=== PATIENT | female | born 1960 | race Caucasian/White ===

== ENCOUNTER → 2016-10-16 | Outpatient (CLI) | payer OTHER ==
[2015-08-30 15:00] VITALS: BP 112/62
[~2016-10-16] MED LIST: ESTR0.3T PO; VITA1TAB19 PO
--- NOTE | 2016-10-16 15:00 | KCIC ---
PROCEDURE Two-view chest. HISTORY Cough, wheezing on auscultation. COMPARISON Two-view chest July 05, 2015. FINDINGS The cardiomediastinal silhouette is normal. There is a 12 millimeter nodular opacity in the left lung base on the frontal view without correlate on the lateral view. Lungs otherwise clear. No pleural effusion or pneumothorax. No acute bone abnormality. IMPRESSION Nodular opacity in the left lung base. Nodule could be infectious/inflammatory or neoplastic. Recommend further evaluation with CT chest versus short-term followup two-view chest. Electronically signed by: Jose Rafael Mary MD (Oct 16, 2016 14:59:09)
== END | disposition home or self-care (01) ==
LOC: KCIC 14:17
PROVIDERS: ATTEND Nurse Practitioner Family
DX: R05 Cough (principal); R06.2 Wheezing
CPT/HCPCS: 71020

== ENCOUNTER → 2017-08-30 | Outpatient (CLI) | payer OTHER | END | disposition home or self-care (01) | LOC: KCIC 13:46 | DX: M79.644 Pain in right finger(s) (principal); R91.8 Other nonspecific abnormal finding of lung field | CPT/HCPCS: 71046; 73120 ==

== ENCOUNTER → 2017-09-06 | Outpatient (CLI) | payer OTHER | END | disposition home or self-care (01) | LOC: KCIC CT 08:35 | DX: R91.8 Other nonspecific abnormal finding of lung field (principal) | CPT/HCPCS: 71250 ==

== ENCOUNTER 2019-05-29 08:16 | Outpatient (CLI) | payer OTHER ==
[2019-05-29] VITALS (9 sets, daily range): BP systolic 89–130; BP diastolic 59–85
[2019-05-29 09:09] LABS: BASO % 1 % (0-3); EOS % 1 % (0-3); HEMATOCRIT 32.2 % (36.0-47.0); LYMPH # 0.5 x10^3/uL (1.0-4.8); LYMPH % 38 % (24-48); MEAN CORPUSCULAR HEMOGLOBIN 32 pg (25-35); MEAN CORPUSCULAR HGB CONC 34 g/dL (31-37); MEAN CORPUSCULAR VOLUME 92 fL (79-100); MONO # 0.1 x10^3/uL (0.0-1.1); MONO % 9 % (0-9); NEUT # 0.7 x10^3/uL (1.8-7.7); NEUT % 51 % (31-73); RED BLOOD COUNT 3.48 x10^6/uL (3.50-5.40); RED CELL DISTRIBUTION WIDTH 16.8 % (11.5-14.5)
[2019-05-29] MEDS ORDERED: CALC600T4 PO (09:11)
[2019-05-29] MEDS ORDERED: FLAX1CAP PO (09:11)
[2019-05-29] MEDS ORDERED: ASPI325T11 PO (09:11)
[2019-05-29 09:12] LABS: WHITE BLOOD COUNT 1.4 x10^3/uL (4.0-11.0)
[2019-05-29 09:13] LABS: PLATELET COUNT 20 x10^3/uL (140-400)
[2019-05-29 09:15] LABS: PROTHROMBIN TIME PATIENT 13.6 SEC (11.7-14.0)
--- NOTE | 2019-05-29 09:19 | NUR ---
Dr. Gonzalez notified of critical wbc 1.4, and of critical plt count of 20; prior to bone marrow bx. No new orders received.
[2019-05-29] MEDS ORDERED: MIDAZOLAM HCL/PF 2 MG/2 ML VIAL. ONE (09:21)
[2019-05-29] MEDS ORDERED: fentaNYL PF VIAL 100 MCG/2 ML VIAL ONE (09:21)
[2019-05-29] MEDS ORDERED: LIDOCAINE WITH 8.4% SOD BICARB 3 ML DISP.SYRIN. ONE (09:25)
[2019-05-29] MEDS ORDERED: MIDAZOLAM HCL/PF 2 MG/2 ML VIAL. IV ONE (09:30)
[2019-05-29] MEDS ORDERED: fentaNYL PF VIAL 100 MCG/2 ML VIAL IV ONE (09:30)
[2019-05-29] MEDS ORDERED: LIDOCAINE WITH 8.4% SOD BICARB 3 ML DISP.SYRIN. IJ ONE (09:30)
[2019-05-29 11:09] LABS: % BANDS 5 % (0-9); % BASOS 1 % (0-3); % BLASTS 5 % (0-0); % EOS 2 % (0-5); % LYMPHS 29 % (24-48); % MONOS 4 % (0-10); % SEGS 54 % (35-66); PLT ESTIMATE DECREASED (ADEQUATE)
[2019-05-29 11:10] LABS: ANISOCYTOSIS PRESENT
--- NOTE | 2019-05-29 11:37 | NUR ---
Discharge Note: MARIZA HURLEY Discharge instructions and discharge home medications reviewed with Patient and a copy given. All questions have been answered and understanding verbalized. The following instructions and handouts were given: post moderate sedation, post bone marrow bx. Discontinued lines and drains: right FA IV dc'd, tip intact. Patient discharged to home with spouse via car.
--- NOTE | 2019-05-30 08:02 | RAD ---
CT-guided bone marrow biopsy. 05/30/2019 5:58 AM Indication: MDS Discussion: The risks and benefits of the procedure, including but not limited to, bleeding and infection were discussed patient. Informed consent was obtained. The patient was brought to the CT scanner and placed in the prone position. A timeout procedure was performed. Furnace Attendant CT imaging of the pelvis demonstrated left ilium amenable to bone marrow biopsy. The overlying soft tissues were prepped and draped using maximum sterile barrier technique. 1% lidocaine without epinephrine was administered for local anesthesia. Under intermittent CT guidance, an OncControl needle was advanced into the bone marrow of the left iliac crest. 2 Aspirates and 1 core biopsy samples were obtained. Samples were delivered to pathology was present at the time of procedure. The needle was removed and manual pressure held to achieve hemostasis. No immediate complications were identified. The procedure was performed under conscious sedation including continuous cardiopulmonary monitoring via dedicated sedation nurse. Sedation time: 15 minutes Impression: Successful CT-guided bone marrow biopsy of the left iliac crest . PQRS Compliance Statement: One or more of the following individualized dose reduction techniques were utilized for this examination: 1. Automated exposure control 2. Adjustment of the mA and/or kV according to patient size 3. Use of iterative reconstruction technique
--- NOTE | 2019-06-04 11:07 | PATHOLOGY ---
[facility] Accession Number: [id number] . 01 Material submitted: . PART A: bone - BONE MARROW BIOPSY PART B: bone - BONE MARROW ASPIRATE CLOT PART C: bone - BONE MARROW ASPIRATE SLIDE . 01 Clinical history: . MDS A 58-year-old woman with pancytopenia and previous diagnosis of myelodysplastic syndrome. . 02 Diagnosis: Bone marrow aspirate, biopsy, cell clot and peripheral blood: - Peripheral blood with pancytopenia including moderate to severe luekopenia, mild normocytic anemia and severe thrombocytopenia with circulating blasts. - HYPERCELLULAR BONE MARROW WITH TRILINEAGE HEMATOPOIESIS, TRILINEAGE DYSPOIESIS, INCREASED SMALL DYSPLASTIC MEGAKARYOCYTES AND INCREASED BLASTS CONSISTENT WITH THE PATIENT'S PREVIOUSLY DIAGNOSED MYELODYSPLASTIC SYNDROME. (14% MYELOBLASTS BY FLOW CYTOMETRY AND 13% BLASTS BY MORPHOLOGY). - See comment. . (CLW:elda; 06/03/2019) S 06/03/2019 1520 Local . 02 Comment: Overall the bone marrow is hypercellular for the patient's age with trilineage hematopoiesis, trilineage dyspoiesis, increased small dysplastic megakaryocytes and increased blasts. The findings are consistent with the patient's previously diagnosed myelodysplastic syndrome ([id number]). There are 14% myeloblasts by flow cytometry, 13% blasts by morphology and 10-20% blasts by immunohistochemistry. 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 When compared compared to the previous bone marrow biopsy, there is an increase in cellularity and increase in blasts. FISH analysis detected multiple abnormalities which likely indicate clonal evolution. Correlation with clinical history, additional laboratory data and cytogenetics / molecular studies is required. The case was discussed preliminarily with Dr. Steve Avalos on 05/30/2019 in the afternoon. The case was discussed with Dr. Dominguez on 06/04/2019 at 8:30 AM. . (CLW:elda; ) . 02 Electronically signed: . Aleida Parr MD, Pathologist NPI- [id number] . 01 Gross description: . A. Received in formalin labeled "Jessica Arora, BM BX," is a single needle core of ring bone measuring 1.5 cm in length and 0.2 cm in diameter. The specimen is submitted entirely in cassette A1, following decalcification. . B. Received in formalin labeled "Patt Arorara, BM Asp clot," is an aggregate of dark ring blood clot measuring 3.1 x 2.5 x 0.4 cm. The specimen is filtered and entirely submitted in cassette B1. (TSD; 05/29/2019) TOB/TOB 05/29/2019 1843 Local . 02 Microscopic: . CBC Data (05/29/2019): WBC 1,400 /uL, RBC 3.48, hemoglobin 11.0 g/dL, hematocrit 32.2%, MCV 92 fL, MCH 32 pg, MCHC 34 g/dL, RDW 16.8%, and platelet count 20,000 /uL. Manual white blood cell differential: segs 54%, bands 5%, lymphs 29%, monos 4%, eos 2%, basos 1%, and blasts 5%. . Peripheral Blood Smear: Cytomorphological examination of the Alvarado's stained peripheral blood smear confirms the provided data. Red blood cells show mild normocytic anemia with mild anisocytosis. No significant poikilocytosis is identified. White blood cells are decreased in number. They are predominantly segmented neutrophils with focal dysplastic changes of nuclear hypolobation. Occasional blasts without Alayna rods are noted on scanning. Lymphocytes are predominantly small, round, and mature appearing with condensed chromatin and scant cytoplasm with admixed large granular lymphocytes. Monocytes are mature. Platelets are markedly decreased in number and mainly normal in morphology with rare larger platelets noted. . Aspirate Smears: Cytomorphological examination of the Alvarado's stained aspirate smears shows disrupted hypocellular spicules present. The myeloid to erythroid ratio is 4:1. Myeloid maturation is abnormal and dyspoietic with abnormal nuclear lobation and increased blasts. No Alayna rods are seen. Erythroid maturation is mildly dyserythropoietic. In a 200 cell differential, there are 13% blasts (no Alayna rods are seen), 36% more differentiated myeloids, 13% erythroid precursors, and 38% lymphocytes. Megakaryocytes are inconspicuous. No lymphoid aggregated or markedly atypical lymphoid cells are seen. Iron stain of the aspirate smear shows 0 / 4+ iron positivity with hypocellular spicules present. No ringed sideroblasts are identified. . Core Biopsy and Cell Clot: The decalcified bone marrow core biopsy is adequate. Areas of aspiration artifact are noted. The bone marrow has patchy cellularity and is overall hypercellular with an overall cellularity of approximately 70%. The myeloid to erythroid ratio is increased. Myeloid and erythroid maturation are dyspoietic. Megakaryocytes are increased, small and dysplastic in appearance. No lymphoid aggregates or markedly atypical lymphoid cells are seen. Bony trabeculae and blood vessels are unremarkable. The cell clot is predominantly blood and peripheral blood elements with hypocellular spicules present. . Properly controlled special stains are performed. . Block A1 Iron: 1 / 4+ iron positivity; Reticulin: 2-3 / 4+ (moderate) reticulin fibrosis. . Block B1 Iron: 0 / 4+ iron positivity with only hypocellular spicules present. . Due to the hemodilute nature of the aspirate smears and to identify cells in a tissue architectural context, properly controlled immunohistochemical stains are performed. . Block A1 CD34: Mildly increased blasts (10-20%); CD117: Mildly increased staining; Myeloperoxidase: Confirms the ME ratio; Glycophorin A: Confirms the ME ratio; CD31: Increased, variably mature, megakaryocytes. . . Flow Cytometry: Flow cytometric immunophenotypic analysis was performed at [facility]. The diagnosis is "approximately 14% CD34 positive myeloblasts in a hemodilute marrow, suggestive of a high-grade myeloid neoplasm." There are 29.6% lymphocytes. Of the lymphocytes, there are 72% T-cells with a CD4/CD8 ratio of 3.3 and no aberrant T-cell antigen expression and 3% polyclonal B-cells (kappa lambda ratio of 1.8). There are 14% CD34 positive cells myeloblasts. The myeloblast immunophenotype shows expression of CD34, CD117, CD11b, CD13, CD33, HLA-DR, cytoMPO and is negative for cytoTdT and lymphoid antigens. Please see separate flow cytometry report from [facility] ([id number]). . Cytogenetics Analysis: FISH analysis was performed at [facility]. The results are abnormal. 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 Please see separate report from [facility] ([id number]). . Cytogenetic chromosomal analysis is pending at [facility] ([id number]). Molecular analysis for an AML prognostic profile is pending at [facility] ([id number]). (CLW:elda; 06/03/2019) . 02 Pathologist provided ICD-10: D72.819, D69.6, D46.9 . 02 CPT . 022412, 344558, 037054, 377505, 839074, 001012, 841837, 903057, P24373, [id number] Specimen Comment: A courtesy copy of this report has been sent to Specimen Comment: [phone], , . Specimen Comment: Report sent to ,DR AVALOS / DR RODRIGUEZ Performed at: 01 [facility] [address] [id number] MD Trenton Pettit MD Phone: [phone] Performed at: 02 [facility] [address] [id number] MD Viktor Velazquez MD Phone: [phone]
== END 2019-05-29 11:20 | disposition home or self-care (01) ==
LOC: INTRAD 08:16
PROVIDERS: ATTEND Internal Medicine Hematology & Oncology
DX: D46.9 Myelodysplastic syndrome, unspecified (principal); D69.6 Thrombocytopenia, unspecified; D61.818 Other pancytopenia; Z88.0 Allergy status to penicillin
CPT/HCPCS: 36415; 38222; 77012; 85025; 85610; 88184; 88185; 88237; J2250; J3010; 85007; 99152